=== PATIENT | male | born 1970 | race African-American/Black ===

== ENCOUNTER 2022-05-13 21:31 | Emergency (ER) | payer OTHER ==
[~2022-05-13] VITALS: Ht 175.2 cm; Wt 72.5 kg
[~2022-05-13 21:31] MED LIST: ALBU8.5H9 IH; ALPR-557 PO; ALPR1TAB7 PO; BACL10TA PO; BUTA1TAB46 PO; CARI350T PO; CEPH-507 PO; CETI10TA17; CLOT15CR28 TP; CYCL10TA9 PO; DIAZ5TAB3 PO; DICY20TA10 PO; DICY20TA57 PO; DIVA-21 PO; DIVA125T2 PO; DIVA250T4 PO; DULO20CA PO; FAMO-119 PO; HYDR RC; HYDR-1231 PO; HYDR-34 PO; HYDR-3720 PO; HYDR-3729 PO; HYDR118S10 PO; HYDR1CAP2 PO; HYDR2TAB30 PO; HYOS0.1216 PO; LIDO15CR6 TP; METH4TAB PO; MONT-40; MSL400TEC PO; NAPR-243 PO; ONDA-42 SL; ONDA4TAB11 PO; ONDA4TAB8 SL; OXYC-109 PO; OXYC1CAP3 PO; OXYC1TAB11 PO; OXYC1TAB87 PO; PANT40TA2 PO; PANT40TA52 PO; PRD20T PO; PRM25T PO; PROM118S5 PO; PROPANALOL PO; QUET300T2 PO; SLF500T PO; SULF1TAB38 PO; TAPE50TA PO; TPR100T PO; VALP250C3 PO; VERA240C2 PO; VERA240T90 PO; VERA240T98 PO
[2022-05-13 21:40] VITALS: BP 122/81
--- NOTE | 2022-05-13 22:01 | Diagnostic Imaging Report ---
EXAM: ANKLE 3 VIEW RIGHT INDICATION: Right ankle injury and pain. COMPARISON: 10/29/2018. FINDINGS: No fracture or malalignment. Soft tissue shadows are unremarkable. IMPRESSION: Negative right ankle radiographs. Dictated by: Dictated on workstation # [id number]
--- NOTE | 2022-05-13 22:02 | Diagnostic Imaging Report ---
EXAM: FOOT 3 VIEW RIGHT INDICATION: Right foot injury and pain. COMPARISON: 10/29/2018. FINDINGS: No fracture or malalignment. Soft tissue shadows are unremarkable. IMPRESSION: Negative right foot radiographs. Dictated by: Dictated on workstation # [id number]
--- NOTE | 2022-05-13 22:07 | ED Lower Extremity ---
General Chief Complaint: Lower Extremity Stated Complaint: RIGT ANKLE SWOLLEN Nursing Triage Note: Patient states that he rolled his ankle at approximately 11am this morning. Patient reports the pain getting worse throughout the day. Source: patient History of Present Illness Date Seen by Provider: May 13, 2022 Time Seen by Provider: 21:38 Initial Comments 51-year-old male presenting with complaints of pain to the right ankle and foot. 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 He had pain at that time but was still able to walk and get around. However then he had to take a trip in the vehicle for work and just now was getting back to [place]. He states that when he went to get out of the truck he had increased pain and can barely walk. He has not used any ice or elevated his foot. He did take some Tylenol earlier but was still having pain. He denies any other injuries. He did not hit his head or lose consciousness. He has previously injured this foot and ankle but is not having chronic pain from that. He reports multiple allergies to medications. Onset: this morning (Around 11 AM) Severity: severe Pain/Injury Location: right foot, right ankle Method of Injury: twisted Modifying Factors: Worse With Movement Allergies and Home Medications Allergies Coded Allergies: NSAIDS (Non-Steroidal Anti-Inflamma (Verified Allergy, Severe, 05/13/22) ketorolac (Verified Allergy, Severe, 05/13/22) Fish Containing Products (Verified Allergy, Unknown, 05/13/22) bee venom protein (honey bee) (Verified Allergy, Unknown, 05/13/22) ibuprofen (Verified Allergy, Unknown, 05/13/22) morphine (Verified Allergy, Unknown, 05/13/22) tramadol (Verified Allergy, Unknown, 05/13/22) Patient Home Medication List Home Medication List Reviewed: Yes Oxycodone HCl/Acetaminophen (Oxycodone-Acetaminophen 5-325) 5 Mg-325 Mg Tablet, 1 EACH PO Q8H PRN for PAIN-MODERATE TO SEVERE Prescribed by: ABE HAWKINS on 05/13/22 3025 Review of Systems Constitutional: no symptoms reported EENTM: no symptoms reported Respiratory: no symptoms reported Cardiovascular: no symptoms reported Gastrointestinal: no symptoms reported Genitourinary: no symptoms reported Musculoskeletal: see HPI Skin: No change in color Psychiatric/Neurological: Denies Numbness, Denies Paresthesia Past Vijjoej-Atovem-Zjfklm Hx Patient Social History Tobacco Use?: No Substance use?: No Alcohol Use?: No Physical Exam Vital Signs Vital Signs - First Documented 05/13/22 21:40 Temp 37.0 Pulse 73 Resp 16 B/P (MAP) 122/81 (95) Pulse Ox 99 O2 Delivery Room Air Capillary Refill : Less Than 3 Seconds Height, Weight, BMI Height: '" Weight: lbs. oz. kg; 23.00 BMI Method: General Appearance: WD/WN, no apparent distress Cardiovascular: normal peripheral pulses Ankles: right ankle limited range of motion (Limited range of motion due to pain in the right ankle and foot), right ankle pain, right ankle soft tissue tenderness, right ankle swelling Feet: right foot pain, right foot soft tissue tenderness, right foot swelling Neurologic/Tendon: normal sensation Neurologic/Psychiatric: alert, oriented x 3 Skin: normal color, warm/dry; No ecchymosis Progress/Results/Core Measures Results/Orders My Orders Orders - ABE HAWKINS MD Ice: Apply To Affected Area (05/13/22 21:46) Elevate Affected Extremity (05/13/22 21:46) Ankle 3 View Right (05/13/22 21:46) Foot 3 View Right (05/13/22 21:46) Stanley Bandage (05/13/22 22:15) Air Strup Ankle Brace (05/13/22 22:15) Rx-Oxycodone/Apap 5-325 Mg (Rx-Percocet (05/13/22 22:15) Medications Given in ED Current Medications Medications Dose Ordered Sig/Faviola Route Start Time Stop Time Status Last Admin Dose Admin Oxycodone/ Acetaminophen 1 ea Q8H PRN PO 05/13/22 22:15 05/13/22 22:26 DC 05/13/22 22:22 1 EA Vital Signs/I&O 05/13/22 21:40 Temp 37.0 Pulse 73 Resp 16 B/P (MAP) 122/81 (95) Pulse Ox 99 O2 Delivery Room Air Blood Pressure Mean: 95 Progress Progress Note #1: Progress Note Potential diagnosis of right ankle sprain, right foot sprain, foot fracture, ankle fracture. Obtain x-rays of the right foot and right ankle to evaluate for acute bony abnormality. Ice pack and elevation to help with pain and swelling. Progress Note #2: Progress Note On my personal interpretation and review of his 3 views of the right ankle and right foot he has no acute fracture or dislocation. There is some mild medial soft tissue swelling. Patient states that he is unable to tolerate NSAIDs as they cause seizures for him. He gets stomach irritation with hydrocodone. He states that he can tolerate oxycodone. Can prescribe a few days of pain medicine to help with the severe pain from a sprain. We will place Stanley bandage and ankle splint with an Aircast. Weightbearing as tolerated. If he feels that he needs more support beyond Aircast and the Stanley wrap can order a set of crutches for him. Patient stated that he did not want to use crutches and will try getting around with the Stanley wrap and Aircast. He reports having to wear off and that he does not need a note for work. Check back with his regular provider if not improving. Diagnostic Imaging Diagonstic Imaging: Xray Plain Films/CT/US/NM/MRI: ankle Comments [facility] [place], [place] NAME: TATUMNICHOLE [employer] REC#: [id number] PT STATUS: REG ER : 1970 PHYSICIAN: ABE HAWKINS MD ADMIT DATE: 05/13/22/ER FS Signed Date of Exam:05/13/22 ANKLE 3 VIEW RIGHT EXAM: ANKLE 3 VIEW RIGHT INDICATION: Right ankle injury and pain. COMPARISON: 10/29/2018. FINDINGS: No fracture or malalignment. Soft tissue shadows are unremarkable. IMPRESSION: Negative right ankle radiographs. Dictated by: Dictated on workstation # [id number] Dict: 05/13/222158 Trans: 05/13/222199 BAB [id number] Interpreted by: EVIN YOUSSEF MD Electronically signed by: EVIN YOUSSEF MD 05/13/222199 Reviewed: Reviewed by Me (I reviewed radiologist report at 2209) Diagonstic Imaging: Xray Plain Films/CT/US/NM/MRI: other (foot) Comments [facility]. [place] NAME: NICHOLE TATUM [employer] REC#: [id number] PT STATUS: REG ER : 1970 PHYSICIAN: ABE HAWKINS MD ADMIT DATE: 05/13/22/ER FS Signed Date of Exam:05/13/22 FOOT 3 VIEW RIGHT EXAM: FOOT 3 VIEW RIGHT INDICATION: Right foot injury and pain. COMPARISON: 10/29/2018. FINDINGS: No fracture or malalignment. Soft tissue shadows are unremarkable. IMPRESSION: Negative right foot radiographs. Dictated by: Dictated on workstation # [id number] Dict: 05/13/222199 Trans: 05/13/222200 BAB [id number] Interpreted by: EVIN YOUSSEF MD Electronically signed by: EVIN YOUSSEF MD 05/13/222200 Reviewed: Reviewed by Me (Reviewed radiologist report at 2210) Departure Impression Primary Impression: Right ankle sprain Qualified Codes: S93.401A - Sprain of unspecified ligament of right ankle, initial encounter Additional Impression: Other sprain of right foot, initial encounter Disposition: HOME, SELF-CARE Condition: Stable Departure-Patient Inst. Decision time for Depature: 22:11 Referrals: HEBERT BARKER DO (PCP/Family) Primary Care Physician Patient Instructions: AIRCAST, Ankle Sprain ED, Foot Sprain ED, Using Cold for Pain Add. Discharge Instructions: Use Stanley bandage for compression and support. Use the Aircast to give additional support your ankle. Weightbearing as tolerated. Follow-up with clinic if having continued or worsening pain. Ice 20 to 30 minutes every few hours as needed for pain and swelling. Try to elevate your foot and ankle is much as possible to help with pain and swelling. There were no obvious fractures or broken bones on the x-rays. All discharge instructions reviewed with patient and/or family. Voiced understanding. Scripts Oxycodone HCl/Acetaminophen (Oxycodone-Acetaminophen 5-325) 5 Mg-325 Mg Tablet 1 EACH PO Q8H PRN for PAIN-MODERATE TO SEVERE MDD 6 for 3 Days, #9 TAB 0 Refills Prov: ABE HAWKINS MD 05/13/22 ABE HAWKINS MD May 13, 2022 22:07
[2022-05-13] MEDS ORDERED: OXYC1TAB11 PO (22:13)
[2022-05-13] MEDS ORDERED: RX-OXYCODONE/APAP 5-325 MG #4 TAB PK PO PRN (22:15)
== END 2022-05-13 22:26 | disposition home or self-care (01) ==
LOC: EDUNIT# 21:31 → ER FS 21:38
DX: S93.401A Sprain of unspecified ligament of right ankle, initial encounter (principal); S93.691A Other sprain of right foot, initial encounter; Z88.5 Allergy status to narcotic agent; Z28.310 Unvaccinated for COVID-19; X50.1XXA Overexertion from prolonged static or awkward postures, initial encounter
CPT/HCPCS: 73610; 73630

== ENCOUNTER 2022-05-26 10:37 | Emergency (ER) | payer MEDICARE, OTHER ==
[~2022-05-26] VITALS: Ht 175.3 cm; Wt 68.5 kg
[2022-05-26] MEDS ORDERED: fentaNYL INJ 100 MCG/2 ML AMP IVP STA (10:51)
[2022-05-26] MEDS ORDERED: LORazepam 0.5 MG (ATIVAN) TABLET PO STA (10:51)
[2022-05-26] MEDS ORDERED: NS IV 1000 ML 1,000 ML IV STA ×2 (10:51→12:30)
[2022-05-26] MEDS ORDERED: ONDANSETRON 4 MG/2 ML (SDV) Z0FRAN IVP STA (10:51)
[2022-05-26 11:03] LABS: BASOPHILS % (AUTO) 1 % (0-10); EOSINOPHILS # (AUTO) 0.2 10^3/uL (0.0-0.3); EOSINOPHILS % (AUTO) 3 % (0-10); HEMATOCRIT 47 % (40-54); HEMOGLOBIN 15.2 g/dL (13.3-17.7); LYMPHOCYTES # (AUTO) 3.6 10^3/uL (1.0-4.0); LYMPHOCYTES % (AUTO) 52 % (12-44); MEAN CORPUSCULAR HEMOGLOBIN 30 pg (25-34); MEAN CORPUSCULAR HGB CONC 32 g/dL (32-36); MEAN CORPUSCULAR VOLUME 92 fL (80-99); MEAN PLATELET VOLUME 8.3 fL (9.0-12.2); MONOCYTES # (AUTO) 0.5 10^3/uL (0.0-1.0); MONOCYTES % (AUTO) 8 % (0-12); NEUTROPHILS # (AUTO) 2.6 10^3/uL (1.8-7.8); NEUTROPHILS % (AUTO) 37 % (42-75); PLATELET COUNT 284 10^3/uL (130-400); WHITE BLOOD COUNT 6.9 10^3/uL (4.3-11.0)
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
[2022-05-26 11:23] LABS: ACETAMINOPHEN < 10 UG/ML (10-30); ALANINE AMINOTRANSFERASE 16 U/L (0-55); ALBUMIN 4.6 GM/DL (3.2-4.5); ALKALINE PHOSPHATASE 69 U/L (40-136); BILIRUBIN,TOTAL 1.5 MG/DL (0.1-1.0); BUN/CREATININE RATIO 7; CALCIUM 9.9 MG/DL (8.5-10.1); CARBON DIOXIDE 20 MMOL/L (21-32); CHLORIDE 103 MMOL/L (98-107); CREATININE SERUM 0.96 MG/DL (0.60-1.30); GFR ESTIMATED 97; GLUCOSE 96 MG/DL (70-105); POTASSIUM 4.5 MMOL/L (3.6-5.0); SALICYLATE < 0.3 MG/DL (5.0-20.0); SODIUM 137 MMOL/L (135-145); TOTAL PROTEIN 7.6 GM/DL (6.4-8.2)
--- NOTE | 2022-05-26 11:28 | Diagnostic Imaging Report ---
PROCEDURE: CT head without contrast. TECHNIQUE: Multiple contiguous axial images were obtained through the brain without the use of intravenous contrast. Auto Exposure Controls were utilized during the CT exam to meet ALARA standards for radiation dose reduction. INDICATION: Head and neck pain. Seizures. COMPARISON: 12/30/2014. FINDINGS: CT of the head demonstrates no evidence of an acute intracranial abnormality. There is no evidence of intracranial hemorrhage. There is no extra-axial fluid collection, mass effect or shift. Brand and white matter differentiation appear preserved. There is no abnormal hypodensity within the basal ganglia. The ventricles are appropriate in size and configuration. There is no evidence of hydrocephalus. The basilar cisterns are patent. The posterior fossa is unremarkable. Mastoids and visualized paranasal sinuses appear clear. Orbital contents are unremarkable. There is no calvarial abnormality. IMPRESSION: 1. No CT evidence of an acute intracranial abnormality. Dictated by: Dictated on workstation # [id number]
[2022-05-26 11:48] LABS: BILIRUBIN,URINE NEGATIVE (NEGATIVE); CLARITY,URINE CLEAR; GLUCOSE, URINE (UA) NEGATIVE (NEGATIVE); KETONES,URINE TRACE (NEGATIVE); LEUKOCYTE ESTERASE ,URINE NEGATIVE (NEGATIVE); NITRITE,URINE NEGATIVE (NEGATIVE); PROTEIN,URINE TRACE (NEGATIVE)
[2022-05-26 11:52] LABS: BACTERIA,URINE FEW /HPF; COLOR,URINE DARK YELLOW; RBC,URINE 0-2 /HPF
[2022-05-26 11:59] LABS: AMPHETAMINE SCREEN, URINE NEGATIVE (NEGATIVE); BARBITURATE SCREEN URINE NEGATIVE (NEGATIVE); BENZODIAZEPINES SCREEN URINE NEGATIVE (NEGATIVE); CANNABINOID SCREEN, URINE POSITIVE (NEGATIVE); COCAINE SCREEN URINE POSITIVE (NEGATIVE); METHADONE STAT NEGATIVE (NEGATIVE); OPIATE SCREEN URINE NEGATIVE (NEGATIVE); OXYCODONE STAT NEGATIVE (NEGATIVE); PROPOXYPHENE STAT NEGATIVE (NEGATIVE); TRICYCLIC ANTIDEPRESSANTS SCRE NEGATIVE (NEGATIVE)
[2022-05-26 13:13] LABS: VALPROIC ACID 65.9 UG/ML (50.0-100.0)
[2022-05-26] MEDS ORDERED: oxyCODONE/APAP 5/325MG (PERCOCET 5) TABLET PO STA (13:34)
[2022-05-26] MEDS ORDERED: ORPHENADRINE 60 MG/2 ML (NORFLEX) AMP (ED ONLY) IVP STA (13:34)
[2022-05-26] MEDS ORDERED: CYCL10TA25 PO (13:40)
[2022-05-26] MEDS ORDERED: OXYC1TAB11 PO ×2 (13:40→17:04)
[2022-05-26 13:45] VITALS: BP 132/68
[2022-05-26] MEDS ORDERED: BACL10TA PO (14:05)
[2022-05-27] MEDS ORDERED: OXYC1TAB87 PO (10:12)
== END 2022-05-26 13:45 | disposition home or self-care (01) ==
LOC: EDUNIT# 10:37 → ER FS 10:40
DX: G40.909 Epilepsy, unspecified, not intractable, without status epilepticus (principal); T42.6X6A Underdosing of other antiepileptic and sedative-hypnotic drugs, initial encounter; E86.0 Dehydration; F14.90 Cocaine use, unspecified, uncomplicated; I10 Essential (primary) hypertension; F17.210 Nicotine dependence, cigarettes, uncomplicated; Z91.138 Patient's unintentional underdosing of medication regimen for other reason
CPT/HCPCS: 36415; 70450; 80053; 80164; 80306; 81000; 82550; 83874; 85025; 87088; 93005; 93041; 99284; G0480 ×3; 80320; 80329

== ENCOUNTER → 2022-06-15 | Outpatient (CLI) | payer MEDICARE ==
[~2022-06-15] MED LIST changes: +CYCL10TA25 PO
[2022-06-15 11:55] LABS: BASOPHILS % (AUTO) 1 % (0-10); EOSINOPHILS # (AUTO) 0.1 10^3/uL (0.0-0.3); EOSINOPHILS % (AUTO) 2 % (0-10); HEMATOCRIT 46 % (40-54); HEMOGLOBIN 15.1 g/dL (13.3-17.7); LYMPHOCYTES # (AUTO) 2.2 10^3/uL (1.0-4.0); LYMPHOCYTES % (AUTO) 37 % (12-44); MEAN CORPUSCULAR HEMOGLOBIN 30 pg (25-34); MEAN CORPUSCULAR HGB CONC 33 g/dL (32-36); MEAN CORPUSCULAR VOLUME 91 fL (80-99); MEAN PLATELET VOLUME 8.8 fL (9.0-12.2); MONOCYTES # (AUTO) 0.3 10^3/uL (0.0-1.0); MONOCYTES % (AUTO) 6 % (0-12); NEUTROPHILS # (AUTO) 3.3 10^3/uL (1.8-7.8); NEUTROPHILS % (AUTO) 55 % (42-75); PLATELET COUNT 266 10^3/uL (130-400)
[2022-06-15 12:15] LABS: ALBUMIN 4.5 GM/DL (3.2-4.5); BILIRUBIN,TOTAL 1.1 MG/DL (0.1-1.0); CALCIUM 9.5 MG/DL (8.5-10.1); CREATININE SERUM 0.89 MG/DL (0.60-1.30); POTASSIUM 3.9 MMOL/L (3.6-5.0)
--- NOTE | 2022-06-15 12:39 | Diagnostic Imaging Report ---
INDICATION: Cough. EXAMINATION: Two-view chest 06/15/2022. COMPARISON: 11/03/2021 FINDINGS: The cardiomediastinal silhouette is unremarkable. The pulmonary vasculature is within normal limits. The lungs and pleural spaces are clear. IMPRESSION: No evidence of an acute cardiopulmonary process. Dictated by: Dictated on workstation # [id number]
== END ==
LOC: RAD 11:19
PROVIDERS: ATTEND Family Medicine
DX: R05.9 Cough, unspecified (principal)
CPT/HCPCS: 36415; 71046; 80053; 85025

== ENCOUNTER 2022-06-21 14:28 | Emergency (ER) | payer MEDICARE ==
[~2022-06-21] VITALS: Ht 175 cm; Wt 75.0 kg
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
[2022-06-21] MEDS ORDERED: ACETAMINOPHEN 325 MG TABLET PO STA (14:38)
[2022-06-21] MEDS ORDERED: ORPHENADRINE 60 MG/2 ML (NORFLEX) AMP (ED ONLY) IM STA (14:38)
[2022-06-21 14:39] VITALS: BP 113/80
[2022-06-21] MEDS ORDERED: CYCL10TA25 PO (15:05)
--- NOTE | 2022-06-21 15:09 | Diagnostic Imaging Report ---
INDICATION: Cough, right rib pain. FINDINGS: Frontal chest and oblique views of the right wrist performed. The Lungs clear. No failure, effusion or pneumothorax. No rib fracture deformity. No bony destructive lesion. No free air beneath the diaphragms. IMPRESSION: Unremarkable frontal chest and right rib series. Dictated by: Dictated on workstation # [id number]
[2022-06-21] MEDS ORDERED: BACL10TA PO (15:20)
== END 2022-06-21 15:35 | disposition home or self-care (01) ==
LOC: EDUNIT# 14:28 → ER FS 14:30
DX: S29.012A Strain of muscle and tendon of back wall of thorax, initial encounter (principal); X58.XXXA Exposure to other specified factors, initial encounter
CPT/HCPCS: 71101

== ENCOUNTER → 2023-01-16 | Outpatient (CLI) | payer MEDICARE ==
[~2023-01-16] VITALS: Ht 175.3 cm; Wt 72.7 kg
[~2023-01-16] MED LIST changes: +LIDOCAINE 1% INJ 10 ML VIAL INJ ONE; +LIDOCAINE 1% INJ 10 ML VIAL ONE
--- NOTE | 2023-01-16 14:49 | Diagnostic Imaging Report ---
INDICATION: Right shoulder injury and pain. Patient was brought to the procedure room and placed on the table in the supine position. The right shoulder was prepped and draped in the usual sterile fashion. A small amount of 1% lidocaine was utilized for local anesthesia. A 22-gauge needle was advanced into the right shoulder at the rotator interval. A 15 mm solution of iodinated contrast, normal saline, and gadolinium was injected under fluoroscopic observation. Needle was removed, and hemostasis was obtained. The patient tolerated the procedure well and was sent to MRI in satisfactory condition. A total of 11 seconds of fluoroscopic time was utilized. Dose is 22.1 mGy. IMPRESSION: Right shoulder injection of gadolinium contrast solution, using fluoroscopy. Dictated by: Dictated on workstation # [id number]
--- NOTE | 2023-01-16 15:30 | Diagnostic Imaging Report ---
HISTORY: Right shoulder dislocation with right shoulder pain. COMPARISON: None TECHNIQUE: Multiplanar, multisequence MRI examination of the right shoulder is performed following intra-articular injection of a gadolinium-based contrast mixture. FINDINGS: No acute fracture is seen in the right shoulder. The shoulder joint is well distended with contrast. Alignment appears normal. The supraspinatus and infraspinatus tendons are intact. The teres minor and subscapularis tendons are intact. There is no muscular atrophy. The long head of the biceps tendon appears normal in course and signal. The glenoid labrum demonstrates an irregular tear superiorly, with mild lateral extension (image 11, series 8), which extends to about 11 o'clock posteriorly, as well as anteriorly to about 2 o'clock. There is no paralabral cyst. The acromion has a curved undersurface. The coracoclavicular ligament is intact. The coracoacromial ligament appears intact. There is severe degenerative change in the acromioclavicular joint with marked surrounding bone marrow and deep soft tissue edema. IMPRESSION: 1. Tear of the superior right glenoid labrum. No paralabral cyst. 2. No high-grade partial-thickness or full-thickness rotator cuff tear. 3. Severe degenerative changes with active arthropathy in the right acromioclavicular joint. Dictated by: Dictated on workstation # [id number]
== END ==
LOC: RAD 13:01
DX: S43.431A Superior glenoid labrum lesion of right shoulder, initial encounter (principal); M19.011 Primary osteoarthritis, right shoulder; S43.101D Unspecified dislocation of right acromioclavicular joint, subsequent encounter
CPT/HCPCS: 23350; 73040; C8934; 73225